=== PATIENT | male | born 1980 | race Caucasian/White ===

== ENCOUNTER 2022-12-17 15:49 | Emergency (ER) | payer MEDICAID ==
--- NOTE | 2022-12-17 16:05 | NUR ---
bowling or skating front desk clerk called reporting upset pt in lobby throwing stuff and throwing a metal object at staff. unable to clearly see metal object. code jairo called, security, charge nurse, distribution warehouse manager aware.
--- NOTE | 2022-12-17 16:13 | NUR ---
pt called to lobby no answer. per front end specialist pt told them he was leaving.
--- NOTE | 2022-12-17 16:49 | NUR ---
pt returned to be seen xapprox 5 mins ago, called to be triaged and pt had left again.
--- NOTE | 2022-12-17 17:00 | NUR ---
pt called, no response, LWBS.
== END 2022-12-17 17:00 | disposition left against medical advice (07) ==
LOC: MED 15:49
DX: I10 Essential (primary) hypertension (principal); Z53.21 Procedure and treatment not carried out due to patient leaving prior to being seen by health care provider